=== PATIENT | female | born 1950 | race Native Hawaiian/Other Pacific Islander ===

== ENCOUNTER 2017-03-22 05:08 | Emergency (ER) | payer OTHER ==
[~2017-03-22] VITALS: Ht 165.1 cm; Wt 81.6 kg
[~2017-03-22 05:08] MED LIST: ACCOLATE10 MG OR; ALBUTEROL0.083 % IN; ESTR0.9T PO; FLOVENT DISK100 MCG IN; FLUO10CA2 PO; HYDR25TA15 PO; MEDROL DOSEPAK4 MG OR; OMEPRAZOLE40 MG PO; SINGULAIR10 MG PO; TRIAMCINOLON0.51 TOP; ZANTAC300 MG PO
[2017-03-22 05:38] LABS: PLATELET COUNT 310 K/uL (152-353)
[2017-03-22 05:58] LABS: POTASSIUM 3.7 mmol/L (3.6-5.2); SODIUM 140 mmol/L (136-145)
[2017-03-22 06:43] VITALS: BP 90/60; TEMP 98.1
== END 2017-03-22 06:45 | disposition home or self-care (01) ==
LOC: ED 05:08
PROVIDERS: Specialist
DX: J40 Bronchitis, not specified as acute or chronic (principal); R11.10 Vomiting, unspecified
CPT/HCPCS: 36415; 80048; 85027; 96374; 99283; J2550

== ENCOUNTER 2018-01-19 10:18 | Outpatient (CLI) | payer OTHER | END 2018-01-19 19:27 | disposition home or self-care (01) | LOC: MAMMO 10:18 | DX: Z12.31 Encounter for screening mammogram for malignant neoplasm of breast (principal) ==

== ENCOUNTER 2018-02-05 12:33 | Outpatient (CLI) | payer OTHER | END 2018-02-05 22:53 | disposition home or self-care (01) | LOC: MAMMO 12:33 | DX: N64.89 Other specified disorders of breast (principal) ==

== ENCOUNTER 2018-07-05 08:11 | Emergency (ER) | payer OTHER ==
[~2018-07-05] VITALS: Ht 166.4 cm; Wt 89.8 kg
[2018-07-05 08:20] VITALS: TEMP 97.6
[2018-07-05] MEDS ORDERED: [UNRECOGNIZED DRUG - CODE] PO (08:32)
[2018-07-05 10:39] VITALS: BP 138/64
== END 2018-07-05 10:39 | disposition home or self-care (01) ==
LOC: ED 08:11
DX: M79.662 Pain in left lower leg (principal)
CPT/HCPCS: 99282

== ENCOUNTER 2018-12-20 15:25 | Outpatient (CLI) | payer OTHER ==
[~2018-12-20 15:25] MED LIST changes: +[UNRECOGNIZED DRUG - CODE] PO
[2018-12-20 16:09] LABS: PLATELET COUNT 317 K/uL (152-353)
[2018-12-20 16:19] LABS: POTASSIUM 4.1 mmol/L (3.6-5.2)
== END 2018-12-20 19:33 | disposition home or self-care (01) ==
LOC: LAB 15:25
PROVIDERS: Nurse Practitioner Family
DX: Z00.00 Encounter for general adult medical examination without abnormal findings (principal); F41.8 Other specified anxiety disorders; F32.9 Major depressive disorder, single episode, unspecified; K21.9 Gastro-esophageal reflux disease without esophagitis; Z79.899 Other long term (current) drug therapy
CPT/HCPCS: 80053; 80061; 83036; 84439; 84443; 85027

== ENCOUNTER 2019-01-04 10:37 | Emergency (ER) | payer OTHER ==
[~2019-01-04] VITALS: Ht 166.4 cm; Wt 86.2 kg
[2019-01-04 10:49] VITALS: TEMP 98.1
[2019-01-04 11:53] VITALS: BP 154/78
== END 2019-01-04 12:00 | disposition home or self-care (01) ==
LOC: ED 10:37
DX: S00.83XA Contusion of other part of head, initial encounter (principal); R03.0 Elevated blood-pressure reading, without diagnosis of hypertension; W20.8XXA Other cause of strike by thrown, projected or falling object, initial encounter; Y92.89 Other specified places as the place of occurrence of the external cause
CPT/HCPCS: 99283

== ENCOUNTER 2019-01-28 16:11 | Outpatient (CLI) | payer OTHER | END 2019-01-28 19:10 | disposition home or self-care (01) | LOC: LAB 16:11 | DX: K21.9 Gastro-esophageal reflux disease without esophagitis (principal); R10.9 Unspecified abdominal pain | CPT/HCPCS: 86318 ==

== ENCOUNTER 2019-02-08 12:23 | Outpatient (CLI) | payer OTHER | END 2019-02-08 19:12 | disposition home or self-care (01) | LOC: RAD 12:23 | DX: R10.84 Generalized abdominal pain (principal); K21.9 Gastro-esophageal reflux disease without esophagitis ==

== ENCOUNTER 2020-05-04 19:21 | Emergency (ER) | payer OTHER ==
[~2020-05-04] VITALS: Ht 166.4 cm; Wt 94.8 kg
[2020-05-04 20:40] VITALS: BP 148/68; TEMP 98.6
== END 2020-05-04 20:40 | disposition home or self-care (01) ==
LOC: ED 19:21
PROC: 0JQ00ZZ Repair Scalp Subcutaneous Tissue and Fascia, Open Approach (ICD-10-PCS; principal; 2020-05-04)
DX: S01.01XA Laceration without foreign body of scalp, initial encounter (principal); W20.8XXA Other cause of strike by thrown, projected or falling object, initial encounter; Y92.89 Other specified places as the place of occurrence of the external cause
CPT/HCPCS: 99282; 99284

== ENCOUNTER 2020-09-30 13:03 | Outpatient (CLI) | payer OTHER | END 2020-09-30 22:18 | disposition home or self-care (01) | LOC: RESP 13:03 | PROVIDERS: ATTEND Internal Medicine Sleep Medicine | DX: J45.909 Unspecified asthma, uncomplicated (principal) ==

== ENCOUNTER 2021-01-16 16:23 | Emergency (ER) | payer OTHER ==
[~2021-01-16] VITALS: Ht 166.4 cm; Wt 86.2 kg
[2021-01-16 18:57] VITALS: BP 142/80; TEMP 98.3
== END 2021-01-16 18:58 | disposition home or self-care (01) ==
LOC: ED 16:23
PROC: 0HQFXZZ Repair Right Hand Skin, External Approach (ICD-10-PCS; principal; 2021-01-16)
PROC: 2W3JX1Z Immobilization of Right Finger using Splint (ICD-10-PCS; 2021-01-16)
DX: S61.214A Laceration without foreign body of right ring finger without damage to nail, initial encounter (principal); S62.664A Nondisplaced fracture of distal phalanx of right ring finger, initial encounter for closed fracture; W23.0XXA Caught, crushed, jammed, or pinched between moving objects, initial encounter; Y92.89 Other specified places as the place of occurrence of the external cause
CPT/HCPCS: 96372; 99283; J0696

== ENCOUNTER 2021-02-23 08:43 | Outpatient (CLI) | payer OTHER ==
[2021-02-23 09:02] LABS: PLATELET COUNT 315 K/uL (152-353)
[2021-02-23 09:28] LABS: POTASSIUM 3.8 mmol/L (3.6-5.2)
== END 2021-02-23 19:03 | disposition home or self-care (01) ==
LOC: LABW 08:43
PROVIDERS: ATTEND Nurse Practitioner Family
DX: L20.89 Other atopic dermatitis (principal); Z79.899 Other long term (current) drug therapy
CPT/HCPCS: 36415; 80053; 85027

== ENCOUNTER 2021-04-29 11:16 | Outpatient (CLI) | payer OTHER | END 2021-04-29 21:21 | disposition home or self-care (01) | LOC: RAD 11:16 | PROVIDERS: ATTEND Nurse Practitioner Family | DX: U07.1 COVID-19 (principal); R06.02 Shortness of breath ==